=== PATIENT | female | born 1970 | race Caucasian/White ===

== ENCOUNTER 2016-07-01 21:32 | Inpatient (IN) | payer MEDICAID ==
[~2016-07-01] VITALS: Ht 162.6 cm; Wt 72.1 kg
[2016-07-01 21:39] VITALS: BP 141/91
--- NOTE | 2016-07-01 23:33 | NUR ---
Patient ambulated to bed 05.
--- NOTE | 2016-07-01 23:39 | NUR ---
Dr. Orellana evaluating patient at bedside.
[2016-07-01] MEDS ORDERED: KETOROLAC 30 MG/ML VIAL IVP ONE (23:40)
--- NOTE | 2016-07-01 23:40 | NUR ---
RT FLANK PAIN STARTED YESTERDAY NAUSEA, SEEN IN AN URGENT CARE AT 1930 HOUR AND FOR ABD US
--- NOTE | 2016-07-01 23:43 | NUR ---
LAB at bedside.
--- NOTE | 2016-07-02 00:03 | NUR ---
Patient going to CT via wheelchair per tech.
--- NOTE | 2016-07-02 00:14 | NUR ---
Patient back from CT via wheelchair per tech.
[2016-07-02] MEDS ORDERED: PIPERACILLIN/TAZOBACTAM 3.375 GM in DEXTROSE 5% 50 ML IV ONE (00:50)
[2016-07-02] MEDS ORDERED: PIPERACILLIN/TAZOBACTAM 3.375 GM VIAL IV ONE ×3 (01:02→13:24)
[2016-07-02] MEDS ORDERED: ONDANSETRON 4 MG/2 ML VIAL IVP PRN ×2 (01:10→13:30)
[2016-07-02] MEDS ORDERED: ACETAMINOPHEN 325 MG TAB PO PRN (01:10)
[2016-07-02] MEDS ORDERED: ZOCOR10 MG PO (01:15)
[2016-07-02] MEDS ORDERED: NORCO 325 MG-51 TAB PO (01:15)
[2016-07-02] MEDS ORDERED: MOTRIN600 MG PO (01:15)
--- NOTE | 2016-07-02 01:31 | NUR ---
Patient will be admitted to care of DR. CALDERON. Admited to [facility]. Will go to [id number]. Belongings list completed. Report to MARJ BLANKENSHIP.
--- NOTE | 2016-07-02 01:55 | NUR ---
RECEIVED REPORT FROM ED RN FOR CONTINUITY OF CARE. PATIENT IS A&OX4, DISCUSSED PLAN OF CARE WITH PATIENT AND DAUGHTER AT BEDSIDE, VERBALIZED UNDERSTANDING. SHIFT ASSESSMENT DONE, VS TAKEN, STABLE AT THIS TIME. PT C/O ABDOMINAL PAIN, WILL MEDICATE PER MD ORDER. SKIN INTACT. PT IS AMBULATORY, VOIDED IN RESTROOM. IV TO LT AC 20 GAUGE PATENT AND INFUSING FLUIDS WELL. MRSA SWAB COLLECTED AND WRISTBANDS APPLIED. ORIENTED PATIENT TO ROOM. CALL LIGHT PLACED WITHIN REACH AND PT ENCOURAGED TO USE FOR ASSISTANCE. NPO ENFORCED TO PATIENT, VERBALIZED UNDERSTANDING. WILL CONTINUE TO MONITOR.
[2016-07-02 02:00] VITALS: BP 139/78
[2016-07-02] MEDS: NACL 0.9% 1,000 ML IV SCH ×2 (02:03→11:20)
[2016-07-02] MEDS: MORPHINE SULFATE 2 MG/ML SYR IVP PRN ×3 (02:10→22:22)
--- NOTE | 2016-07-02 02:10 | NUR ---
MEDICATED PATIENT FOR PAIN PER MD ORDER. CALL LIGHT WITHIN REACH. WILL CONTINUE TO MONITOR.
--- NOTE | 2016-07-02 04:20 | NUR ---
PT IS SLEEPING. NO S/S OF DISTRESS OR DISCOMFORT NOTED. WILL CONTINUE TO MONITOR.
--- NOTE | 2016-07-02 06:03 | NUR ---
PT IS SLEEPING. NO S/S OF DISTRESS OR DISCOMFORT NOTED. WILL CONTINUE TO MONITOR.
--- NOTE | 2016-07-02 07:23 | NUR ---
ENDORSED PATIENT TO DAY RN FOR CONTINUITY OF CARE, PATIENT IS IN STABLE CONDITION.
[2016-07-02 08:00] VITALS: BP 125/81
[2016-07-02] MEDS: LORazepam 2 MG/ML VIAL IVP PRN (08:22)
--- NOTE | 2016-07-02 08:28 | NUR ---
PATIENT HAS BEEN SCREENED AND CATEGORIZED MODERATE NUTRITION RISK. PATIENT WILL BE SEEN WITHIN 3-5 DAYS OF ADMISSION. 07/04/16-07/06/[address]
[2016-07-02] MEDS ORDERED: BUPIVACAINE-MPF/EPI 0.25% 30 ML VIAL INJ ONE (12:15)
--- NOTE | 2016-07-02 12:45 | NUR ---
PT OFF UNIT TO OR FOR LAPROSCOPIC APPENDECTOMY.
[2016-07-02] MEDS ORDERED: GLYCOPYRROLATE 0.2 MG/ML VIAL ONE (12:50)
[2016-07-02] MEDS ORDERED: PROPOFOL 200 MG/20 ML VIAL IV ONE (12:50)
[2016-07-02] MEDS ORDERED: SUCCINYLCHOLINE CHLORIDE 200 MG/10 ML VIAL IVP ONE (12:50)
[2016-07-02] MEDS ORDERED: ONDANSETRON 4 MG/2 ML VIAL ONE (12:50)
[2016-07-02] MEDS ORDERED: SEVOFLURANE 250 ML BTL INH ONE (12:50)
[2016-07-02] MEDS ORDERED: PHENYLEPHRINE 10 MG/ML VIAL ONE (12:50)
[2016-07-02] MEDS ORDERED: ROCURONIUM 50 MG/5 ML VIAL IV ONE (12:50)
[2016-07-02] MEDS ORDERED: DEXAMETHASONE 4 MG/ML VIAL ONE (12:50)
[2016-07-02] MEDS ORDERED: MEPERIDINE 50 MG/ML SYR ONE (13:00)
[2016-07-02] MEDS ORDERED: fentaNYL 0.05 MG/ML VIAL ONE (13:00)
[2016-07-02] MEDS ORDERED: MIDAZOLAM 2 MG/2 ML VIAL ONE (13:00)
[2016-07-02] MEDS ORDERED: LACTATED RINGERS 1,000 ML IV SCH (13:30)
[2016-07-02] MEDS ORDERED: HYDROmorphone 1 MG/ML AMP IVP PRN (13:30)
[2016-07-02] MEDS ORDERED: diphenhydrAMINE 50 MG/ML VIAL IVP PRN (13:30)
[2016-07-02] MEDS ORDERED: MEPERIDINE 25 MG/ML SYR IVP PRN (13:30)
[2016-07-02] MEDS: DEXT 5% / NACL 0.45% 1,000 ML IV SCH (14:15)
--- NOTE | 2016-07-02 14:52 | NUR ---
PT IS STILL IN SURGERY. WILL FOLLOW WITH IS WHEN SHE IS BACK.
[2016-07-02] MEDS: HYDROmorphone PFS 2 MG/ML SYR ONE ×2 (14:55→15:05)
--- NOTE | 2016-07-02 15:25 | NUR ---
PT RETURNED FROM OR, RECEIVED REPORT FROM KRZYSZTOF FOREMAN. PT STABLE AT THIS TIME, NO S/S OF RESPIRATORY DISTRESS OR DISCOMFORT NOTED, CALL LIGHT WITHIN REACH, WILL CONTINUE TO MONITOR.
[2016-07-02 16:00] VITALS: BP 118/64
--- NOTE | 2016-07-02 17:00 | NUR ---
PT SLEEPING AT THIS TIME, SON IS AT BEDSIDE, CALL LIGHT WITHIN REACH, WILL CONTINUE TO MONITOR.
[2016-07-02] MEDS: PIPER/TAZO 3.375GM/D5W PREMIX 50 ML IV SCH (18:07)
--- NOTE | 2016-07-02 19:05 | NUR ---
ENDORSED PT TO KRZYSZTOF BOYKIN. FOR CONTINUITY OF CARE. PT STABLE AT THIS TIME.
--- NOTE | 2016-07-02 19:35 | NUR ---
RECEIVED PT IN STABLE CONDITION FROM AM NURSE. ASLEEP BUT AROUSE EASILY WHEN NAME CALLED. FAMILY MEMBERS AT BEDSIDE. NO S/S OF ANY PAIN AT THIS TIME. HAS O22L/NC. IVF INFUSING WELL ON THE LT AC #20. CLEAR AND PATENT. S/P LAP APPENDECTOMY ABDOMEN WITH X3 INCISION ,WITH GLUE. NO REDNESS NOR BLEEDING NOTED. V/S TAKEN ,STABLE. PLAN OF CARE DISCUSSED AND VERBALIZED UNDERSTANDING. CALL LIGHT PLACED WITHIN EASY REACH. WILL CONTINUE TO MONITOR.
[2016-07-02 19:50] VITALS: BP 115/75
--- NOTE | 2016-07-02 20:30 | NUR ---
PT TOLERATED SOME JELLO AND WATER. NO N/V NOTED. WILL CONTINUE TO MONITOR.
--- NOTE | 2016-07-02 20:50 | NUR ---
ASSISTED PT WITH BEDPAN. ABLE TO VOID @ 400ML CLEAR URINE.
[2016-07-02 22:10] VITALS: BP 122/78
--- NOTE | 2016-07-02 22:42 | NUR ---
PT VOIDED AGAIN. EDUCATE PT THE NEED TO DEEP BREATH AND COUGH. DEMONSTRATED WELL. THEN ASSISTED TO TURN TO RT SIDE.
[2016-07-03] MEDS: DEXT 5% / NACL 0.45% 1,000 ML IV SCH ×3 (00:15→10:15)
[2016-07-03 00:18] VITALS: BP 122/81
[2016-07-03] MEDS: PIPER/TAZO 3.375GM/D5W PREMIX 50 ML IV SCH ×3 (00:20→11:09)
--- NOTE | 2016-07-03 00:25 | NUR ---
PT IS ANXIOUS. MEDICATED WITH ATIVAN IVP ORDERED. WILL CONTINUE TO MONITOR.
[2016-07-03] MEDS: LORazepam 2 MG/ML VIAL IVP PRN ×2 (00:28→22:43)
--- NOTE | 2016-07-03 01:30 | NUR ---
SLEEPING AT THIS TIME. NO S/S OF ANY DISCOMFORT NOR PAIN NOTED. WILL CONTINUE TO MONITOR.
[2016-07-03 03:35] VITALS: BP 111/72
--- NOTE | 2016-07-03 03:45 | NUR ---
TRIED TO ASSIST PT TO GET UP TO BATHROOM BUT PT IS NOT READY, C/O PAIN. ASSISTED BACK TO BED. WILL MEDICATE FOR PAIN ORDERED.
[2016-07-03] MEDS: MORPHINE SULFATE 2 MG/ML SYR IVP PRN ×3 (03:59→14:56)
--- NOTE | 2016-07-03 06:20 | NUR ---
SLEEPING AT THIS TIME. NO S/S OF ANY DISCOMFORT NOR PAIN NOTED.
--- NOTE | 2016-07-03 07:10 | NUR ---
ENDORSED PT IN STABLE CONDITION TO AM NURSE.
--- NOTE | 2016-07-03 07:11 | NUR ---
RECEIVED REPORT AT PT BEDSIDE. PT RESTING IN BED, C/O ABDOMINAL PAIN. ASSISTED PATIENT TO BATHROOM, NO S/S OF ACUTE DISTRESS. WILL MEDICATE ORDERED. CALL LIGHT WITHIN REACH.
[2016-07-03 08:00] VITALS: BP 132/86
--- NOTE | 2016-07-03 08:46 | NUR ---
AWAKE AND ALERT RESPONSIVE OT SOLE FILLER VERBAL COMMANDS PATIENT UNABLE TO FACILITATE INCENTIVE SPIROMETRY THERAPY DUE TO ABDOMINAL PAIN ROSA/RN NOTIFIED SOLE FILLER TO ATTEMPT AT A LATER TIME
--- NOTE | 2016-07-03 09:44 | NUR ---
PT SLEEPING. ON O2 2L NC. NO S/S OF ACUTE DISTRESS NOTED. ABDOMINAL INCISIONS DRY AND INTACT. SCDS IN PLACE.
--- NOTE | 2016-07-03 10:37 | NUR ---
PATIENT ASSISTED WITH AMBULATION AROUND NURSING UNIT WITH .
[2016-07-03] MEDS: HYDROcodone/APAP 5/325 MG 1 TAB TAB PO PRN ×2 (11:14→21:13)
--- NOTE | 2016-07-03 11:42 | NUR ---
PATIENT RESTING IN BED WITH AT BEDSIDE. PT STATES MILD RELIEF FROM AMBULATION/RESTING.
--- NOTE | 2016-07-03 13:50 | NUR ---
PT RESTING IN BED. NO S/S OF ACUTE DISTRESS. WILL CONTINUE TO MONITOR.
[2016-07-03 16:00] VITALS: BP 131/79
[2016-07-03] MEDS ORDERED: MAGNESIUM OXIDE 400 MG TAB PO SCH (16:34)
--- NOTE | 2016-07-03 17:00 | NUR ---
PT SEEN BY PCP. ADVANCING DIET TOLERATED, NO S/S OF ACUTE DISTRESS.
--- NOTE | 2016-07-03 19:17 | NUR ---
ENDORSED PLAN OF CARE TO RN ASHUTOSH AT PT BEDSIDE. NO S/S OF ACUTE DISTRESS NOTED.
--- NOTE | 2016-07-03 19:35 | NUR ---
RECEIVED PT IN STABLE CONDITION FROM AM NURSE. AWAKE,ALERT AND ORIENTED X4. ROMANSH SPEAKING. WITH FAMILY MEMBERS AT BEDSIDE. S/P LAP APPENDECTOMY. WITH X3 INCISIONS ON LOWER ABDOMEN. NO BLEEDING NOTED. PINK TO RED SKIN AROUND THE INCISIONS. NO C/O PAIN AT THIS TIME. PLAN OF CARE DISCUSSED AND VERBALIZED UNDERSTANDING. CALL LIGHT PLACED WITHIN EASY REACH. WILL CONTINUE TO MONITOR.
[2016-07-03] MEDS: MAGNESIUM OXIDE 400 MG TAB PO SCH (21:00)
[2016-07-03 21:08] VITALS: BP 117/67
--- NOTE | 2016-07-03 22:43 | NUR ---
PT VERY ANXIOUS ABOUT NOISE IN THE ROOM. MEDICATED ORDERED PRN. WILL CONTINUE TO MONITOR.
[2016-07-03 23:45] VITALS: BP 124/80
--- NOTE | 2016-07-03 23:50 | NUR ---
STILL AWAKE,BUT NO C/O ANY DISCOMFORT NOR PAIN NOTED.
--- NOTE | 2016-07-04 01:30 | NUR ---
SLEEPING AT THIS TIME. NO S/S FO ANY DISCOMFORT NOR PAIN NOTED.
--- NOTE | 2016-07-04 03:30 | NUR ---
SLEEPING WELL. NO S/S OF ANY DISCOMFORT NOR PAIN NOTED. WILL CONTINUE TO MONITOR.
--- NOTE | 2016-07-04 07:15 | NUR ---
RECEIVED REPORT FROM NIGHT NURSE. PT IS AAOX4 THAI SPEAKING. ON ROOM AIR IV TO TO LEFT AC 20G SALINE LOCK. PATENT AND INTACT. 3 ABD INCISIONS OPNE TO AIR. INITIAL ASSESSMENT COMPLETED, REVIEWED PLAN OF CARE, PT VERBALIZED UNDERSTANDING. ALL NEEDS MET. CALL LIGHT WITHIN REACH. WILL CONTINUE TO MONITOR.
--- NOTE | 2016-07-04 07:15 | NUR ---
ENDORSED PT IN STABLE CONDITION TO AM NURSE FOR CONTINUITY OF CARE.
[2016-07-04 08:00] VITALS: BP 135/91
[2016-07-04] MEDS: MAGNESIUM OXIDE 400 MG TAB PO SCH (08:35)
[2016-07-04] MEDS: MORPHINE SULFATE 2 MG/ML SYR IVP PRN (08:35)
--- NOTE | 2016-07-04 08:39 | NUR ---
DUE MEDICATIONS GIVEN. PT C/O OF ABD PAIN 10/ MEDICATED PER MD ORDERS. ALL NEEDS MET. WILL CONTINUE TO MONITOR.
[2016-07-04] MEDS ORDERED: ACETAMINOPHEN-H1 TA3 PO (10:02)
[2016-07-04] MEDS ORDERED: ZOFRAN4 M1 PO (10:02)
[2016-07-04] MEDS ORDERED: COLACE100 M1 PO (10:02)
[2016-07-04] MEDS ORDERED: MAG SULF 2000 MG/WATER PREMIX 50 ML IV SCH (10:30)
[2016-07-04] MEDS ORDERED: HYDROcodone/APAP 10/325 MG 1 TAB TAB PO PRN (10:30)
[2016-07-04] MEDS ORDERED: MAGNESIUM HYDROXIDE 2400 MG/30 ML UDC PO SCH (10:32)
[2016-07-04] MEDS ORDERED: NORCO 10-325 T1 EACH PO (10:33)
[2016-07-04] MEDS ORDERED: PHARMASSURE VI500 MG PO (10:39)
[2016-07-04] MEDS ORDERED: NATURAL IRON65 MG PO (10:40)
--- NOTE | 2016-07-04 12:45 | NUR ---
DISCUSSED DISCHARGE PLAN WITH PT, PT VERBALIZED UNDERSTANDING. AT BEDSIDE.
--- NOTE | 2016-07-04 13:43 | NUR ---
PT SIGNED ALL DISCHARGE PAPERWORK, PRESCRIPTION GIVEN, FOLLOW UP INFORMATION GIVEN, EDUCATED PT, PT VERBALIZED UNDERSTANDING, PROVIDED ABD BINDER, IV REMOVED TIP INTACT. ALL PERSONAL BELONGINGS WITH PT. AT BEDSIDE.
--- NOTE | 2016-07-04 14:02 | NUR ---
PT WAS WHEELED OT TO FRONT LOBBY IN STABLE CONDITION.
== END 2016-07-04 14:00 | disposition home or self-care (01) | DRG 225 ==
LOC: MED 21:32 → MTU 07-02 01:13
PROVIDERS: ADMIT Family Medicine; ATTEND Family Medicine
PROC: 0DTJ4ZZ Resection of Appendix, Percutaneous Endoscopic Approach (ICD-10-PCS; principal; 2016-07-02 11:05)
DX: K35.80 Unspecified acute appendicitis (principal); E43 Unspecified severe protein-calorie malnutrition; E87.1 Hypo-osmolality and hyponatremia; I10 Essential (primary) hypertension; E83.42 Hypomagnesemia; K57.30 Diverticulosis of large intestine without perforation or abscess without bleeding; E78.5 Hyperlipidemia, unspecified; Z68.27 Body mass index [BMI] 27.0-27.9, adult; D50.9 Iron deficiency anemia, unspecified; Z79.899 Other long term (current) drug therapy; Z80.9 Family history of malignant neoplasm, unspecified; Z56.0 Unemployment, unspecified; Z53.29 Procedure and treatment not carried out because of patient's decision for other reasons

== ENCOUNTER 2021-01-12 19:36 | Observation (INO) | payer MEDICAID ==
[~2021-01-12] VITALS: Ht 162.6 cm; Wt 68.0 kg
[~2021-01-12 19:36] MED LIST: ASCO500T93 PO; DOCU-299 PO; FERR-252 PO; HYDR-5092 PO; IBUP-2213 PO; ONDA4TAB PO; SIMV10TA1 PO
[2021-01-12 19:42] VITALS: BP 165/121
--- NOTE | 2021-01-12 19:51 | NUR ---
PATIENT AMBULATED TO BED 1
--- NOTE | 2021-01-12 19:55 | NUR ---
patient c/o rapid HR, c/p and SAEED. x2 days. patient took tylenol with no relief. +N. denies V/D, fever. c/p feels like a pressure 4/10 comes and goes. denies sob, and difficulty breathing. +ROM. SAEED back of the head that radiates to the frontal lobe. patient does take medication for hdl. AAOx4. GCS 15. pmh: hdl, dm, htn nka
--- NOTE | 2021-01-12 20:06 | NUR ---
Dr. Gillis examining patient.
--- NOTE | 2021-01-12 20:12 | NUR ---
xray at bedside
[2021-01-12 20:23] LABS: BASOPHILS % (AUTO) 0.3 % (0.0-2.0); EOSINOPHILS # (AUTO) 0.1 K/uL (0-0.4); EOSINOPHILS % (AUTO) 1.6 % (0.0-4.0); HEMATOCRIT 43.1 % (36-48); HEMOGLOBIN 14.5 g/dL (12.0-16.0); LYMPHOCYTES # (AUTO) 3.4 K/uL (2.5-16.5); LYMPHOCYTES % (AUTO) 39.3 % (20.5-51.1); MEAN CORPUSCULAR HEMOGLOBIN 30 pg (27-31); MEAN CORPUSCULAR HGB CONC 34 g/dL (33-37); MEAN CORPUSCULAR VOLUME 89.6 fL (80-94); MONOCYTES # (AUTO) 0.8 K/uL (0.8-1.0); MONOCYTES % (AUTO) 9.2 % (1.7-9.3); NEUTROPHILS # (AUTO) 4.3 K/uL (1.8-7.7); NEUTROPHILS % (AUTO) 49.6 % (42.2-75.2); PLATELET COUNT (AUTO) 341 K/uL (140-450); RED BLOOD CELL COUNT(AUTO) 4.81 MIL/uL (4.20-5.40); RED CELL DISTRIBUTION WIDTH 12.9 % (11.6-13.7); WHITE BLOOD COUNT (AUTO) 8.6 K/uL (4.8-10.8)
[2021-01-12] MEDS ORDERED: NITROGLYCERIN 0.4 MG TAB SL STA (20:29)
[2021-01-12] MEDS ORDERED: ONDANSETRON 4 MG/2 ML VIAL ONE (20:34)
[2021-01-12 20:44] LABS: ANION GAP 11.9 (8-16); CARBON DIOXIDE 29.8 mmol/L (21-32); MAGNESIUM 1.6 mg/dL (1.8-2.4); POTASSIUM 3.7 mmol/L (3.5-5.1); TOTAL BILIRUBIN 0.8 mg/dL (0.0-1.0)
--- NOTE | 2021-01-12 20:44 | NUR ---
patient vs abnormal of hr 117 and o2 sat desaturation to 90% and patient unable to take deep breaths due to pressure according to patient. ERMD made aware-- ordered to give nitro.
[2021-01-12] MEDS ORDERED: ASPIRIN 81 MG TAB.CHEW PO STA (21:25)
--- NOTE | 2021-01-12 21:47 | NUR ---
patient would like to call daughter for updates or have nurse speak with daughter. Gregg Hall #[phone]
[2021-01-12] MEDS ORDERED: ONDANSETRON 4 MG/2 ML VIAL IVP ONE (22:05)
[2021-01-12] MEDS ORDERED: LORazepam 2 MG/ML VIAL IVP PRN (22:10)
[2021-01-12] MEDS ORDERED: ACETAMINOPHEN 325 MG TAB PO PRN (22:10)
[2021-01-12] MEDS ORDERED: ZOLPIDEM 5 MG TAB PO PRN (22:10)
[2021-01-12] MEDS ORDERED: MORPHINE SULFATE 2 MG/ML SYR IVP PRN (22:10)
[2021-01-12] MEDS ORDERED: HYDROcodone/APAP 10/325 MG 1 TAB TAB PO PRN (22:10)
[2021-01-12] MEDS ORDERED: NITROGLYCERIN 0.4 MG TAB SL PRN (22:10)
--- NOTE | 2021-01-12 22:19 | NUR ---
patient ambulated to the bathroom with a steady gait.
--- NOTE | 2021-01-12 22:23 | NUR ---
patient back from the bathroom- tolerated well. denies any pain. Attached patient back on the radiographer cardiac catheterization, safety measures are in place, and will continue to monitor patient.
[2021-01-12] MEDS: NACL 0.9% 1,000 ML IV SCH (22:30)
--- NOTE | 2021-01-13 00:22 | NUR ---
Called daughter star for updates on patient.
--- NOTE | 2021-01-13 03:23 | NUR ---
Patient appears to be resting comfortably in bed-- eyes closed, lights dimmed. Vital Signs within normal limits. Respirations even and unlabored. No signs of distress noted. Safety measures are in place, patient on manager monitoring, and will continue to monitor patient. Fluids are running.
--- NOTE | 2021-01-13 07:10 | NUR ---
Pt report given to Dorcas BLANKENSHIP. Transfer of care at this time.
[2021-01-13 07:19] LABS: BASOPHILS % (AUTO) 0.4 % (0.0-2.0); EOSINOPHILS # (AUTO) 0.2 K/uL (0-0.4); EOSINOPHILS % (AUTO) 2.5 % (0.0-4.0); HEMATOCRIT 39.3 % (36-48); HEMOGLOBIN 13.2 g/dL (12.0-16.0); LYMPHOCYTES # (AUTO) 2.5 K/uL (2.5-16.5); LYMPHOCYTES % (AUTO) 40.4 % (20.5-51.1); MEAN CORPUSCULAR HEMOGLOBIN 30 pg (27-31); MEAN CORPUSCULAR HGB CONC 34 g/dL (33-37); MEAN CORPUSCULAR VOLUME 88.9 fL (80-94); MONOCYTES # (AUTO) 0.7 K/uL (0.8-1.0); MONOCYTES % (AUTO) 11.3 % (1.7-9.3); NEUTROPHILS # (AUTO) 2.8 K/uL (1.8-7.7); NEUTROPHILS % (AUTO) 45.4 % (42.2-75.2); PLATELET COUNT (AUTO) 297 K/uL (140-450); RED BLOOD CELL COUNT(AUTO) 4.42 MIL/uL (4.20-5.40); WHITE BLOOD COUNT (AUTO) 6.1 K/uL (4.8-10.8)
[2021-01-13 07:28] LABS: ANION GAP 13.5 (8-16); CARBON DIOXIDE 29.9 mmol/L (21-32); CREATININE 0.6 mg/dL (0.6-1.3); POTASSIUM 3.4 mmol/L (3.5-5.1)
--- NOTE | 2021-01-13 07:47 | NUR ---
RECEIVED CALL FROM ED. REPORT RECEIVED
[2021-01-13 08:02] LABS: CHOL/HDL RATIO 3.9 (1-4.5)
--- NOTE | 2021-01-13 08:04 | NUR ---
Patient will be admitted to care of FLOYD. Admited to TELE. Will go to room 111A. Belongings list completed. Report to
--- NOTE | 2021-01-13 08:07 | NUR ---
Pt transferred to Tele via BED WITH Alphonso TRAVIS TO 111A .
[2021-01-13] MEDS ORDERED: DEXTROSE 50% 50 ML SYR IVP PRN (08:35)
--- NOTE | 2021-01-13 08:45 | NUR ---
PATIENT ARRIVED ON UNIT . PATIENT STATES SHE CAME IN FOR CRUSHING CHEST PAIN THAT RADIATES TO HER LEFT ARM AND LEFT CHEEK . SHE ALSO COMPLAINS OF UNILATERAL HEAD ACHES THAT GOES ON AND OFF 01/06 . PATIENT STATES PAIN IS NOT PRESENT AT THIS TIME. PATIENT STATES PRIOR TO CHEST PAIN SHE HAD HAD ASPARAGUS SOUP AND SODA. DENIES REGURGITATION OR BURNING SENSATION
[2021-01-13 09:12] LABS: MAGNESIUM 1.7 mg/dL (1.8-2.4)
[2021-01-13] MEDS: ASPIRIN 81 MG TAB.CHEW PO SCH (09:30)
--- NOTE | 2021-01-13 09:30 | NUR ---
MEDICATIONS GIVEN PER MD ORDER. PT EDUCATED AND VERBALIZED UNDERSTANDING , PATIENT DENIES PAIN AT THIS TIME
[2021-01-13] MEDS: METOPROLOL 25 MG TAB PO SCH ×2 (09:31→20:37)
[2021-01-13] MEDS: ATORVASTATIN 20 MG TAB PO SCH (09:31)
[2021-01-13] MEDS: PANTOPRAZOLE 40 MG TABEC PO SCH (09:32)
[2021-01-13] MEDS: CLOPIDOGREL 75 MG TAB PO SCH (09:32)
[2021-01-13] MEDS ORDERED: ENOXAPARIN 80 MG/0.8 ML SYR SUBQ SCH (10:25)
--- NOTE | 2021-01-13 11:07 | NUR ---
MEDICATIONS GIVEN PER MD ORDER. PT EDUCATED AND VERBALIZED UNDERSTANDING , PATIENT DENIES PAIN AT THIS TIME
[2021-01-13] MEDS: BLOOD GLUCOSE MONITORING 1 DEV DEV FS SCH ×3 (11:40→20:42)
[2021-01-13 12:00] VITALS: BP 121/83
--- NOTE | 2021-01-13 12:49 | NUR ---
ARELIS ANDERSON MEDICATION GIVEN PER MD ORDER Addendum: 01/13/21 at 1453 by Joleen Corey RN RN 1130 TIME
[2021-01-13] MEDS: INSULIN LISPRO SLIDING SCALE 100 UNITS/ML VIAL SUBQ PRN ×2 (12:50→16:59)
[2021-01-13] MEDS: NACL 0.9% 1,000 ML IV SCH ×2 (12:56→23:30)
--- NOTE | 2021-01-13 13:25 | NUR ---
PATIENT GIVEN ICE PER REQUEST . PATIENT DENIES PAIN AT THIS TIME . ALL SAFETY MEASURES ARE IN PLACE.
--- NOTE | 2021-01-13 14:52 | NUR ---
PATIENT RESTING IN BED, AT BEDSIDE,
[2021-01-13 16:00] VITALS: BP 151/90
--- NOTE | 2021-01-13 16:59 | NUR ---
BG ASSESSED BG 187 PRN MEDICATION GIVEN PER MD ORDER. PT EDUCATED VERBALIZED UNDERSTANDING ALL SAFETY MEASURES ARE IN PLACE
--- NOTE | 2021-01-13 17:00 | NUR ---
P[T COMPLAINS OF HEADACHE . INTERMITTENT COMES ON AND OFF ,
--- NOTE | 2021-01-13 19:24 | NUR ---
PATIENT ENDORSED TO NIGTH SHIFT RN FOR CONTNUITY OF CARE. PT INSTABLE CONDITION
--- NOTE | 2021-01-13 19:30 | NUR ---
RECEIVED PT ON BED, AAOX4, ABLE TO MAKE NEEDS KNOWN, IVF INFUSING WELL, STATED TOLERABLE CHEST PRESSURE 3/10 AT THIS TIME, VITAL SIGNS STABLE, NO SOB NOTED, INSTRUCTED TO CALL IF PAIN GET WORST, INSTRUCTED NPO AFTER MIDNIGHT AND NO CAFFEINE FOR 8 HOURS, VERBALIZED UNDERSTANDING, SAFETY MEASURES IN PLACE, CALL LIGHT WITHIN REACH.
[2021-01-13 20:00] VITALS: BP 122/80
[2021-01-13] MEDS: ENOXAPARIN 80 MG/0.8 ML SYR SUBQ SCH (20:42)
--- NOTE | 2021-01-13 20:45 | NUR ---
BLOOD SUGAR CHECKED WITH 195 RESULT, REFUSED COVERAGE DUE TO NPO AFTER MIDNIGHT, RISK AND BENEFITS EXPLAINED, DUE MEDS ADMINISTERED WITH EDUCATION PROVIDED, ALL NEEDS ATTENDED.
[2021-01-14 00:30] VITALS: BP 134/76
--- NOTE | 2021-01-14 00:30 | NUR ---
PT AWAKE, VITAL SIGNS STABLE, DENIES ANY PAIN, NO SOB NOTED, AMBULATED TO BR WITH STEADY GAIT, REINFORCE NPO AFTER MIDNIGHT, VERBALIZED UNDERSTANDING, IVF INFUSING WELL, CONTINUE TO MONITOR CLOSELY.
[2021-01-14 04:00] VITALS: BP 124/70
--- NOTE | 2021-01-14 05:55 | NUR ---
PT SLEEPING, EASILY AROUSABLE, DENIES ANY PAIN, BLOOD SUGAR CHECKED WITH 197 RESULT, 2 UNITS COVERAGE GIVEN, IVF INFUSING WELL, MAINTAIN ON NPO FOR LEXISCAN TEST TODAY AT 1000, MONITORED CLOSELY.
[2021-01-14] MEDS: INSULIN LISPRO SLIDING SCALE 100 UNITS/ML VIAL SUBQ PRN ×2 (05:58→11:59)
--- NOTE | 2021-01-14 07:22 | NUR ---
PT SLEEPING, NO SIGNS OF DISTRESS, REPORT GIVEN TO KRZYSZTOF WOOD FOR CONTINUITY OF CARE.
[2021-01-14] MEDS: BLOOD GLUCOSE MONITORING 1 DEV DEV FS SCH ×2 (07:24→11:56)
[2021-01-14 08:00] VITALS: BP 130/72
--- NOTE | 2021-01-14 08:00 | NUR ---
RECEIVED REPORT FROM KRZYSZTOF STONER FOR CONTINUITY OF CARE. PATIENT ALERT AWAKE ORIENTED X4, BANGLADESHI SPEAKING, NOT IN ANY DISTRESS NOTED. PATIENT ASLEEP BUT AROUSABLE, DENIES CHEST PAIN AT THIS TIME. WITH IV FLUIDS ON GOING AND INFUSING WELL. ON MONITOR SHOWS SR W/INVERTED T AND BBB. NPO OBSERVED FOR LEXISCAN TODAY. CALL LIGHT WITHIN REACH, WILL CONTINUE TO MONITOR.
[2021-01-14] MEDS: METOPROLOL 25 MG TAB PO SCH (09:00)
[2021-01-14] MEDS: CLOPIDOGREL 75 MG TAB PO SCH (09:15)
[2021-01-14] MEDS: PANTOPRAZOLE 40 MG TABEC PO SCH (09:16)
[2021-01-14] MEDS: ASPIRIN 81 MG TAB.CHEW PO SCH (09:16)
[2021-01-14] MEDS: ATORVASTATIN 20 MG TAB PO SCH (09:16)
[2021-01-14] MEDS: ENOXAPARIN 80 MG/0.8 ML SYR SUBQ SCH (09:21)
--- NOTE | 2021-01-14 09:30 | NUR ---
PATIENT WENT TO [facility]. DUE MEDICATION GIVEN, PER DR. FANG HOLD THE METOPROLOL. IN STABLE CONDITION.
[2021-01-14] MEDS ORDERED: REGADENOSON 0.4 MG/5 ML SYR IV SCH (10:00)
--- NOTE | 2021-01-14 10:19 | NUR ---
PATIENT HAS BEEN SCREENED AND CATEGORIZED LOW NUTRITION RISK. PATIENT WILL BE SEEN WITHIN 7 DAYS OF ADMISSION. 01/19/[address]
[2021-01-14] MEDS ORDERED: ASPI-1822 PO (10:53)
[2021-01-14] MEDS ORDERED: METF-350 PO (10:53)
--- NOTE | 2021-01-14 11:03 | NUR ---
PATIENT STILL IN NUCLEAR MED FOR STRESS TEST. PER DR. FANG QUARTER SEAMER TO CALL HIM FOR THE RESULT OF LEXISCAN.
--- NOTE | 2021-01-14 11:23 | NUR ---
PATIENT BACK FROM [facility]. ALERT AWAKE ORIENTED X4. WILL CONTINUE TO MONITOR.
[2021-01-14 12:00] VITALS: BP 137/85
--- NOTE | 2021-01-14 13:34 | NUR ---
IVF STOPPED, PER DR. FANG PATIENT CAN DC FROM HIS STANDPOINT, NOTIFIED REGARDING LEXISCAN RESULT.
--- NOTE | 2021-01-14 14:20 | NUR ---
PATIENT DC AMBULATORY ACCOMPANIED BY THE DAUGHTER. IV AND HEART MONITOR REMOVED. DC INSTRUCTION GIVEN AND VERBALIZED UNDERSTANDING. IN STABLE CONDITION.
--- NOTE | 2021-01-14 15:09 | NUR ---
DC PLANNING: THE PATIENT ADMITTED THROUGH THE ED WITH C/O CHEST PAIN X 2 DAYS. PATIENT WAS ADMITTED FOR CARDIAC WORK UP TO R/O ACS TROPONIN AND EKG NEGATIVE FOR MD, THE PATIENTS CARDIOLITE STRESS TEST WAS NEGATIVE FOR ISCHEMIA OR MD, EF OF 67%. THE PATIENT DC'D TO HOME WITH FAMILY, CM WILL FOLLOW NEEDED.
--- NOTE | 2021-01-21 11:04 | NUR ---
LATE ENTRY- IV FLUIDS SODIUM CHLORIDE DISCONTINUED AT 0807.
== END 2021-01-14 14:30 | disposition home or self-care (01) ==
LOC: MED 19:36 → MTU 22:05
PROVIDERS: ADMIT General Practice; ATTEND General Practice
DX: K21.9 Gastro-esophageal reflux disease without esophagitis (principal); R07.89 Other chest pain; E11.65 Type 2 diabetes mellitus with hyperglycemia; E78.5 Hyperlipidemia, unspecified; I11.9 Hypertensive heart disease without heart failure; I20.0 Unstable angina; E87.6 Hypokalemia; E83.42 Hypomagnesemia; E78.00 Pure hypercholesterolemia, unspecified; Z79.899 Other long term (current) drug therapy
CPT/HCPCS: 36415; 71045; 80048; 80053; 80061; 82948; 83735; 84484; 85025; 87081; 93005; 93017; 93307; 96361; 96372; 96374; 99285; A9500; A9502; G0378; J1650; J2405; J2785; Q0092

== ENCOUNTER 2022-02-12 20:27 | Emergency (ER) | payer MEDICAID ==
[~2022-02-12 20:27] MED LIST changes: +ASPI-1822 PO; +METF-350 PO; +SIMV-371 PO; -SIMV10TA1 PO
== END 2022-02-12 22:15 | disposition left against medical advice (07) ==
LOC: MED 20:27
DX: L50.9 Urticaria, unspecified (principal); Z53.21 Procedure and treatment not carried out due to patient leaving prior to being seen by health care provider

== ENCOUNTER 2022-11-03 14:51 | Emergency (ER) | payer MEDICAID ==
[~2022-11-03] VITALS: Ht 162.6 cm; Wt 68.9 kg
[2022-11-03 15:14] VITALS: BP 151/85; PULSE 83; RESP 20; TEMP 98; O2SAT 99
[2022-11-03 16:00] LABS: BASOPHILS % (AUTO) 0.4 % (0.0-2.0); EOSINOPHILS # (AUTO) 0.1 K/uL (0-0.4); EOSINOPHILS % (AUTO) 1.5 % (0.0-4.0); HEMATOCRIT 41.6 % (36-48); LYMPHOCYTES # (AUTO) 3.6 K/uL (2.5-16.5); LYMPHOCYTES % (AUTO) 48.6 % (20.5-51.1); MEAN CORPUSCULAR HEMOGLOBIN 29 pg (27-31); MEAN CORPUSCULAR HGB CONC 34 g/dL (33-37); MEAN CORPUSCULAR VOLUME 86.5 fL (80-94); MONOCYTES # (AUTO) 0.5 K/uL (0.8-1.0); MONOCYTES % (AUTO) 7.1 % (1.7-9.3); NEUTROPHILS # (AUTO) 3.2 K/uL (1.8-7.7); NEUTROPHILS % (AUTO) 42.4 % (42.2-75.2); PLATELET COUNT (AUTO) 333 K/uL (140-450); RED BLOOD CELL COUNT(AUTO) 4.81 MIL/uL (4.20-5.40); RED CELL DISTRIBUTION WIDTH 12.9 % (11.6-13.7); WHITE BLOOD COUNT (AUTO) 7.5 K/uL (4.8-10.8)
[2022-11-03 16:17] LABS: ALBUMIN 3.9 g/dL (3.4-5.0); ANION GAP 11.3 (8-16); CALCIUM 9.6 mg/dL (8.5-10.1); CARBON DIOXIDE 30.5 mmol/L (21-32); CREATININE 0.6 mg/dL (0.6-1.3); POTASSIUM 3.8 mmol/L (3.5-5.1); TOTAL BILIRUBIN 0.6 mg/dL (0.0-1.0); TOTAL PROTEIN, SERUM 8.4 g/dL (6.4-8.2)
[2022-11-03] MEDS: KETOROLAC 15 MG/ML VIAL IM ONE (18:01)
[2022-11-03] MEDS ORDERED: NAPR-1704 PO (18:51)
[2022-11-03 19:30] VITALS: BP 140/85; PULSE 75; RESP 17; TEMP 98; O2SAT 98
== END 2022-11-03 19:30 | disposition home or self-care (01) ==
LOC: MED 14:51
DX: R07.89 Other chest pain (principal); E11.9 Type 2 diabetes mellitus without complications; I10 Essential (primary) hypertension; Z79.899 Other long term (current) drug therapy
CPT/HCPCS: 36415; 71045; 80053; 83880; 84484; 85025; 93005; 96372; 99285; J1885